=== PATIENT | female | born 2000 | race Caucasian/White ===

== ENCOUNTER 2025-08-28 13:28 | Emergency (ER) | payer SELFPAY ==
[2025-08-28 13:36] VITALS: BP 149/90
--- NOTE | 2025-08-28 15:19 | ED.GENMED ---
History of Present Illness
General
Chief Complaint: Musculo-Skeletal Complaint
Source: patient
Exam Limitations: none
Time Seen by Provider: 08/28/25 14:37
Nursing documentation reviewed up to this point in time: agreed with
History of Present Illness
History of Present Illness:
Patient presents to ED secondary to worsening right sided rib pain over the past 1 month. Patient states that her symptoms started with cough last month, but has worsened despite her coughing symptoms having nearly resolved. Patient was evaluated
urgent care center last week, where she had normal chest x-ray. Denies fever or chills. Denies nausea or vomiting. Denies shortness of breath, but states that she is only taking shallow breaths due to pain worsening. Denies nausea or vomiting.
Denies direct trauma. Pain worse with inspiration, laying down, or with movement. Denies previous history of similar symptoms. Denies back pain. Denies leg pain or swelling. Denies family history of heart disease or blood clots.
Review of Systems
Review of Systems
Allergies reviewed?: Yes
All Other Systems: ROS reviewed and negative except as documented in HPI and ROS
Constitutional: Reports no symptoms
Respiratory: Denies cough or trouble breathing
Cardiac: Reports no symptoms
ABD/GI: Reports no symptoms
Musculoskeletal: Reports other (Rib pain)
Skin: Reports no symptoms
Neurological: Reports no symptoms
Phy Exam
Physical Exam
Physical Exam:
Physical Exam
General: mild painful distress, not acutely ill. afebrile
Head: nc/at. eomi
Neck: supple. no meningeal signs. normal posterior pharynx
Heart: s1/s2 regular rate and rhythm
Lungs: mild respiratory distress. diminished breath sounds bilaterally. diffuse tenderness to palpation over right side rib at level of rib#7-10 along mid-axillary line, without erythema/ecchymosis/swelling
Abdomen: normal bowel sounds. mild RUQ tenderness to palpation
Neuro: alert and oriented x 3. no focal neurological deficits
Skin: no rash
Psychiatric: well kept. interactive and cooperative
Extremities: no edema. no calf tenderness.
Course
Orders/Labs/Results
Orders:
Orders
08/28/25 13:45
Ribs, Right 3 View W/PA Chest [CR Ribs-right 3 Vw W/pa Chest*] Urgent
Comment: felt the pain then but got worse
Reason For Exam: right rib pain. pt had a cough couple wks ago and
08/28/25 15:17
Test Result ONCE
08/28/25 15:18
Ketorolac [Toradol] 15 mg IV NOW STA
US Abdomen Complete/Upper Urgent
Comment:
Reason For Exam: RUQ pain
08/28/25 15:28
Complete Blood Count/With Diff Urgent
Comprehensive Metabolic Panel Urgent
D-Dimer Urgent
HCG, Serum Qualitative Screen Urgent
Lipase Urgent
Magnesium Urgent
Abnormal Lab Results
08/28/25
15:28
D-Dimer 0.59 H ug/mlFEU
(0.00-0.50)
Chloride 108 H mmol/L
(98-107)
08/28/25 15:28
08/28/25 15:28
Vital Signs
Initial and Last Documented VS:
Initial Vital Signs
Temp Pulse Resp BP Pulse Ox
98.0 F 80 16 149/90 98
08/28/25 13:36 08/28/25 13:36 08/28/25 13:36 08/28/25 13:36 08/28/25 13:36
Last Documented Vital Signs
Temp Pulse Resp BP Pulse Ox
98.0 F 65 18 124/79 100
08/28/25 13:36 08/28/25 16:52 08/28/25 16:52 08/28/25 16:52 08/28/25 16:52
MDM/Problems Addressed
MDM/Problems Addressed:
Patient with an unremarkable workup in ED, including chest x-ray and abdominal ultrasound. Mildly elevated D-dimer noted, which is nonspecific. However, patient without any significant risk factors for PE, nontachycardic, not hypoxic, and with
focal reproducible pain on exam, worse with movement, no indication for PE study at this time. Advised patient to take prescribed medication, i.e. prednisone along with Z-Ham, as well as tramadol for symptomatic relief. Patient will establish PMD
for outpatient follow-up. Return precautions provided, i.e. fever/worsening pain/shortness of breath. Patient expresses understanding at time of discharge.
*Pulse Oximetry
SaO2: 98
Oxygen Mode of Delivery: Room air
Patient hypoxic: no
*Critical Care Note
Total Time (30-74mins, 75-104mins- exclusive of procedures): Not Applicable
ED Attending Note
-
Portions of this chart may have been created with voice recognition software.� Occasional wrong word or��sound alike� substitutions may have occurred due to the inherent limitations of voice recognition software.
Discharge Plan
Departure
Patient Disposition: Home (Routine Discharge)
Date of Disposition: 08/28/25
Time of Disposition: 16:42
Patient with high blood pressure during this ER visit?: Yes
Condition: Fair
Discharge Problem:
Musculoskeletal pain
Instructions: Musculoskeletal Pain
Prescriptions:
New
prednisone 50 mg tablet
50 mg PO DAILY Qty: 3 0RF
tramadol 50 mg tablet
50 mg PO Q8H PRN (Reason: Pain) Qty: 12 0RF
azithromycin [Zithromax Z-Ham] 250 mg tablet
250 mg PO DAILY 6 Days Qty: 6 0RF
Referrals:
NONE,* [Family Provider, Internal Medicine]
Activity Restrictions/Additional Instructions:
As discussed, please follow-up with your primary care physician for reevaluation. Please consider return to ED with worsening symptoms, i.e. fever/worsening pain/shortness of breath. Your prescriptions have been sent electronically to [facility] pharmacy
on [address] in [place].
Interventions
Interventions:
*Risk Screen - Suicide Last Done: 08/28/25 13:29
*General Assessment Last Done: 08/28/25 13:36
*Neglect/Abuse Screening Last Done: 08/28/25 13:36
*ED COVID-19 Vaccine History Last Done: 08/28/25 15:36
*ED Influenza Vaccine History Last Done: 08/28/25 15:36
[facility] Fall Risk Assessment Tool Last Done: 08/28/25 15:36
*Nursing Disposition Last Done: 08/28/25 16:53
ED-Musculoskeletal Assessment Last Done: 08/28/25 15:36
Discharge Date and Time
Discharge Date/Time: 08/28/25 16:53
Print Language: IRISH
[2025-08-28] MEDS: TORADOL 15 MG IV (15:33)
[2025-08-28 15:39] LABS: Hematocrit 39.4 % (37.0-47.0); Hemoglobin 13.1 g/dL (12.0-16.0); Mean Corp Hgb Conc. 33.2 g/dL (33.0-37.0); Mean Corpuscular Volume 92.1 fL (81.0-99.0); Nucleated Red Blood Cells % 0 %; Platelet Count 251 10^3/uL (130-400); Red Cell Dist. Width 12.5 % (11.5-14.5)
[2025-08-28 15:49] LABS: HCG, Serum Qualitative Screen Negative
[2025-08-28 15:50] LABS: D-Dimer 0.59 ug/mlFEU (0.00-0.50)
[2025-08-28 15:59] LABS: ALT (SGPT) 24 U/L (0-35); AST (SGOT) 26 U/L (14-36); Albumin 4.3 g/dl (3.5-5.0); Alkaline Phosphatase 86 U/L (38-126); Blood Urea Nitrogen 17 mg/dl (7-17); Calcium 9.3 mg/dl (8.4-10.2); Carbon Dioxide 26 mmol/L (22-30); Chloride 108 mmol/L (98-107); Glucose 83 mg/dl (70-99); Lipase 177 U/L (23-300); Magnesium 2.1 mg/dl (1.6-2.3); Sodium 137 mmol/L (135-145); Total Protein 7.3 g/dl (6.3-8.2); eGFR > 60.00
[2025-08-28 16:05] LABS: Potassium 4.4 mmol/L (3.5-5.1)
[2025-08-28 16:52] VITALS: BP 124/79
== END 2025-08-28 16:53 | disposition home or self-care (01) ==
LOC: EMR 13:28
PROVIDERS: EMERGENCY PHYSICIAN Emergency Medicine
DX: R07.89 Other chest pain (principal); R03.0 Elevated blood-pressure reading, without diagnosis of hypertension
CPT/HCPCS: 99284; 96374; 71101; 76700; 80053; 83690; 83735; 84703; 85025; 85379